=== PATIENT | female | born 1945 | race Two or more races ===

== ENCOUNTER 2020-01-20 09:12 | Emergency (ER) | payer OTHER ==
[~2020-01-20] VITALS: Ht 162.6 cm; Wt 59.0 kg
[2020-01-20] MEDS ORDERED: ATORVASTATIN CA10 MG (09:22)
[2020-01-20] MEDS ORDERED: BONIVA3 MG/3 ML (09:23)
[2020-01-20] MEDS ORDERED: LEVSIN/SL0.125 MG SL (12:17)
[2020-01-20] MEDS ORDERED: CARAFATE1 GM/10 ML PO (12:17)
[2020-01-20] MEDS ORDERED: BACTRIM DS TAB1 EACH PO (12:18)
== END 2020-01-20 12:42 | disposition home or self-care (01) ==
LOC: ER 09:12
DX: K29.60 Other gastritis without bleeding (principal)

== ENCOUNTER 2020-08-27 11:51 | Emergency (ER) | payer OTHER ==
[~2020-08-27] VITALS: Ht 162.6 cm; Wt 54.4 kg
[~2020-08-27 11:51] MED LIST: ATORVASTATIN CA10 MG; BACTRIM DS TAB1 EACH PO; BONIVA3 MG/3 ML; CARAFATE1 GM/10 ML PO; LEVSIN/SL0.125 MG SL
== END 2020-08-27 17:47 | disposition home or self-care (01) ==
LOC: ER 11:51
DX: H11.32 Conjunctival hemorrhage, left eye (principal); H02.846 Edema of left eye, unspecified eyelid; R51.9 Headache, unspecified

== ENCOUNTER 2021-12-04 11:27 | Outpatient (CLI) | payer OTHER | END 2021-12-04 12:04 | disposition home or self-care (01) | LOC: SONOGRAMA 11:27 | PROVIDERS: ATTEND Pathology Anatomic Pathology & Clinical Pathology | DX: E04.9 Nontoxic goiter, unspecified (principal) ==